=== PATIENT | female | born 1980 | race Caucasian/White ===

== ENCOUNTER 2017-10-28 23:58 | Emergency (ER) | payer BC ==
[~2017-10-28] VITALS: Ht 154.9 cm; Wt 66.7 kg
[2017-10-29] VITALS: BP_SYST 153
[2017-10-29] MEDS ORDERED: LORazepam 1 MG TABLET PO ONE (00:45)
[2017-10-29] MEDS ORDERED: KETOROLAC TROMETHAMINE 60 MG/2 ML VIAL IM ONE (00:45)
[2017-10-29 02:05] VITALS: BP_SYST 114
== END 2017-10-29 02:05 | disposition home or self-care (01) ==
LOC: SED 23:58
DX: F45.8 Other somatoform disorders (principal); J45.909 Unspecified asthma, uncomplicated; M19.90 Unspecified osteoarthritis, unspecified site; Z88.5 Allergy status to narcotic agent
CPT/HCPCS: 96372; 99283; J1885

== ENCOUNTER 2017-12-09 13:29 | Emergency (ER) | payer BC ==
[~2017-12-09] VITALS: Ht 154.9 cm; Wt 65.3 kg
[2017-12-09 13:30] VITALS: BP_SYST 143
[2017-12-09] MEDS ORDERED: KETOROLAC TROMETHAMINE 60 MG/2 ML VIAL IM ONE (13:45)
[2017-12-09 14:20] VITALS: BP_SYST 132
== END 2017-12-09 14:20 | disposition home or self-care (01) ==
LOC: SED 13:30
DX: G89.29 Other chronic pain (principal); M54.2 Cervicalgia; J45.909 Unspecified asthma, uncomplicated; M19.90 Unspecified osteoarthritis, unspecified site; Z88.5 Allergy status to narcotic agent
CPT/HCPCS: 81025; 96372; 99283; J1885

== ENCOUNTER 2018-05-23 15:30 | Emergency (ER) | payer BC ==
[~2018-05-23] VITALS: Ht 154.9 cm; Wt 61.2 kg
[2018-05-23 15:41] VITALS: BP_SYST 129
[2018-05-23] MEDS ORDERED: KETOROLAC TROMETHAMINE 30 MG VIAL IM ONE (16:00)
[2018-05-23 17:53] VITALS: BP_SYST 120
== END 2018-05-23 17:53 | disposition home or self-care (01) ==
LOC: SED 15:30
DX: S16.1XXA Strain of muscle, fascia and tendon at neck level, initial encounter (principal); J45.909 Unspecified asthma, uncomplicated; R03.0 Elevated blood-pressure reading, without diagnosis of hypertension; Z88.5 Allergy status to narcotic agent; X58.XXXA Exposure to other specified factors, initial encounter; Y93.89 Activity, other specified; Y92.89 Other specified places as the place of occurrence of the external cause; Y99.8 Other external cause status
CPT/HCPCS: 72125; 96372; 99284; J1885

== ENCOUNTER 2019-06-29 17:06 | Emergency (ER) | payer BC ==
[~2019-06-29] VITALS: Ht 154.9 cm; Wt 68.9 kg
[2019-06-29 17:13] VITALS: BP_SYST 122
--- NOTE | 2019-06-29 17:21 | NUR ---
Patient to ER bed 6 to gown for evaluation. Side rails up. Report given to Debbie fontana.
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
--- NOTE | 2019-06-29 17:29 | NUR ---
ER at bedside examining patient.
[2019-06-29] MEDS ORDERED: KETOROLAC TROMETHAMINE 30 MG VIAL IVP ONE (17:45)
--- NOTE | 2019-06-29 17:45 | NUR ---
Pt on stable condition, medicated as ordered, well tolerated
[2019-06-29] MEDS ORDERED: MORPHINE 4 MG/ML INJ. SYRINGE IVP ONE (18:45)
[2019-06-29] MEDS ORDERED: DIPHENHYDRAMINE INJ 50 MG/ML VIAL IVP ONE (18:45)
--- NOTE | 2019-06-29 19:05 | NUR ---
Report given to Jade DEE
[2019-06-29 19:47] VITALS: BP_SYST 109
--- NOTE | 2019-06-29 19:47 | NUR ---
Patient given written and verbal discharge instructions and verbalizes understanding. ER MD Akbar discussed with patient the results and treatment provided. Patient in stable condition. ID arm band removed. IV catheter removed intact and dressing applied, no active bleeding. Rx of Flexeril, Naprosyn given. Patient educated on pain management and to follow up with PMD. Pain Scale 0. Opportunity for questions provided and answered. Medication side effect fact sheet provided.
== END 2019-06-29 19:47 | disposition home or self-care (01) ==
LOC: SED 17:06
DX: S39.012A Strain of muscle, fascia and tendon of lower back, initial encounter (principal); R03.0 Elevated blood-pressure reading, without diagnosis of hypertension; Z88.5 Allergy status to narcotic agent; X50.0XXA Overexertion from strenuous movement or load, initial encounter; Y93.89 Activity, other specified; Y92.89 Other specified places as the place of occurrence of the external cause; Y99.8 Other external cause status
CPT/HCPCS: 72131; 81002; 81025; 96374; 96375; 99284; J1200; J1885; J2270